=== PATIENT | female | born 1955 | race Caucasian/White ===

== ENCOUNTER → 2016-08-14 | Outpatient (CLI) | payer BC ==
--- NOTE | 2016-08-14 13:24 | REPMRS ---
Patient History The patient states she had a clinical breast exam in 08/2016. Patient is postmenopausal, has history of cancer in the right breast at age 58, and has history of high-risk lesion on a previous biopsy at age 58. Family history of prostate cancer in father at age 50 or over, ovarian cancer in mother at age 50 or over, breast cancer in mother at age 50, and breast cancer in maternal aunt. Malignant radio exam breast specimen of the right breast, October 05, 2014. Malignant localization of breast nodule of the right breast, October 05, 2014. High risk stereotatic loc for ea lesion of the right breast, September 11, 2014. Taking tamoxifen for 1 year 9 months beginning at age 58. Digital Woman Screen Mammo: August 14, 2016 - Exam #: [id number] Bilateral CC and MLO view(s) were taken. Technologist: Mirian Olivas Technologist Prior study comparison: August 12, 2015, bilateral digital mammo screening bilat, performed at [facility]. March 31, 2015, right breast digital mammo diagnostic unilateral, performed at [facility]. FINDINGS: There are scattered fibroglandular densities. There has been no change in the appearance of the mammogram from the prior studies. There is a mild amount of residual fibroglandular tissue which is fairly symmetric. There is no interval development of dominant mass, architectural distortion, or clustered microcalcification suggestive of malignancy. ASSESSMENT: BI-RADS/ACR category 1 mammogram. Negative. Recommendation Routine screening mammogram in 1 year (for women over age 40). This mammogram was interpreted with the aid of an FDA-approved computer-aided dectection system. Electronically Signed By: Ishmael Carty MD 08/14/16 [id number]
== END ==
LOC: M WHC 10:38
PROVIDERS: ATTEND Internal Medicine Medical Oncology
DX: Z12.31 Encounter for screening mammogram for malignant neoplasm of breast (principal); Z85.3 Personal history of malignant neoplasm of breast; Z78.0 Asymptomatic menopausal state

== ENCOUNTER → 2017-09-25 | Outpatient (CLI) | payer BC | LOC: M WHC 08:41 | DX: Z12.31 Encounter for screening mammogram for malignant neoplasm of breast (principal) | CPT/HCPCS: 77067 ==

== ENCOUNTER → 2017-09-25 | Outpatient (REF) | payer BC ==
[2017-09-28 14:57] LABS: HPV HYBRID CAPTURE II Negative (Negative)
== END ==
LOC: M SFHCWAGY 08:49
DX: Z12.4 Encounter for screening for malignant neoplasm of cervix (principal); R87.610 Atypical squamous cells of undetermined significance on cytologic smear of cervix (ASC-US)
CPT/HCPCS: G0123

== ENCOUNTER → 2018-09-26 | Outpatient (CLI) | payer BC ==
[~2018-09-26] MED LIST: CALC1TAB26 PO; D32000CA PO; ESCI20TA PO; LORA-243 PO; LOSA25TA14 PO; LOSA50TA88 PO; MULTCAP PO; SIMV80TA13 PO; TAMO20TA8 PO; ZOCO80TA PO
--- NOTE | 2018-09-26 12:06 | REPMRS ---
Patient History The patient states she had a clinical breast exam in 09/2018. 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 Family history of ovarian cancer at age 50 or over and breast cancer at age 50 in mother, breast cancer in maternal aunt, prostate cancer at age 50 or over in father, breast cancer in sister. Malignant radio exam breast specimen of the right breast, October 05, 2014. Malignant localization of breast nodule of the right breast, October 05, 2014. High risk stereotatic loc for ea lesion of the right breast, September 11, 2014. Took tamoxifen for 3 years 6 months beginning at age 58. Digital Woman Screen Mammo: September 26, 2018 - Exam #: [id number] Bilateral CC and MLO view(s) were taken. Technologist: Emily Burch, Technologist Prior study comparison: September 25, 2017, bilateral digital woman screen mammo performed at [facility]. August 14, 2016, digital woman screen mammo performed at [facility]. August 12, 2015, bilateral digital mammo screening bilat, performed at [facility]. FINDINGS: There are scattered fibroglandular densities. There has been no change in the appearance of the mammogram from the prior studies. There is a mild amount of scattered fibroglandular density which is fairly symmetric. There is no interval development of dominant mass, architectural distortion, or grouped microcalcification suggestive of malignancy. 3-D tomosynthesis shows no additional findings. Assessment: BI-RADS/ACR category 1 mammogram. Negative Mammogram. Recommendation Routine screening mammogram of both breasts in 1 year (for women over age 40). This mammogram was interpreted with the aid of an FDA-approved computer-aided dectection system. Electronically Signed By: Sami Corona MD 09/26/18 [id number]
== END ==
LOC: M WHC 09:05
PROVIDERS: ATTEND Nurse Practitioner Family
DX: Z12.31 Encounter for screening mammogram for malignant neoplasm of breast (principal); Z78.0 Asymptomatic menopausal state; Z85.3 Personal history of malignant neoplasm of breast; Z80.3 Family history of malignant neoplasm of breast; Z80.41 Family history of malignant neoplasm of ovary

== ENCOUNTER → 2018-09-26 | Outpatient (REF) | payer BC | LOC: M SFHCWAGY 10:22 | PROVIDERS: ATTEND Nurse Practitioner Family | DX: Z12.4 Encounter for screening for malignant neoplasm of cervix (principal) ==

== ENCOUNTER → 2019-09-29 | Outpatient (CLI) | payer OTHER ==
[~2019-09-29] MED LIST changes: +CIPR-249 PO; +IPRA0.00 NEB; +PANT40TA29 PO; +TOBR1NEB INH; +TREL1AER PO
--- NOTE | 2019-09-29 17:44 | REPMRS ---
Patient History The patient states she had a clinical breast exam in September 2019.Family history of ovarian cancer at age 50 or over and breast cancer at age 50 in mother, breast cancer in maternal aunt, prostate cancer at age 50 or over in father, breast cancer in sister. Malignant radio exam breast specimen of the right breast, October 05, 2014. Malignant localization of breast nodule of the right breast, October 05, 2014. High risk stereotatic loc for ea lesion of the right breast, September 11, 2014. Took tamoxifen for 3 years 6 months beginning at age 58. Digital Woman Screen Mammo: September 29, 2019 - Exam #: [id number] Bilateral CC and MLO view(s) were taken. Technologist: Leigh Velasco, Technologist Prior study comparison: September 26, 2018, bilateral digital woman screen mammo performed at [facility]. September 25, 2017, bilateral digital woman screen mammo performed at [facility]. August 14, 2016, digital woman screen mammo performed at [facility]. FINDINGS: There are scattered fibroglandular densities. The Volpara volumetric breast density category is:B. There has been no change in the appearance of the mammogram from the prior studies. There is a mild amount of scattered fibroglandular density which is fairly symmetric. There is no interval development of dominant mass, architectural distortion, or grouped microcalcification suggestive of malignancy. 3-D tomosynthesis shows no additional findings. Assessment: BI-RADS/ACR category 1 mammogram. Negative Mammogram. Recommendation Routine screening mammogram of both breasts in 1 year (for women over age 40).. This mammogram was interpreted with the aid of an FDA-approved computer-aided dectection system. Electronically Signed By: Sami Corona MD 09/29/19 [id number]
== END ==
LOC: M WHC 08:44
PROVIDERS: ATTEND Nurse Practitioner Family
DX: Z12.31 Encounter for screening mammogram for malignant neoplasm of breast (principal)

== ENCOUNTER → 2020-02-09 | Outpatient (REF) | payer OTHER | LOC: M LAB REF 16:56 | PROVIDERS: ATTEND Internal Medicine Pulmonary Disease | DX: J47.9 Bronchiectasis, uncomplicated (principal) ==

== ENCOUNTER → 2021-12-08 | Outpatient (CLI) | payer MEDICARE, OTHER, SELFPAY ==
[~2021-12-08] MED LIST changes: -ESCI20TA PO; +ESCI20TA16 PO; +LOSA25TA13 PO; -LOSA25TA14 PO; +LOSA50TA28 PO; -LOSA50TA88 PO
== END ==
LOC: M WHC 10:23
PROVIDERS: ATTEND Nurse Practitioner Family
DX: Z12.31 Encounter for screening mammogram for malignant neoplasm of breast (principal)

== ENCOUNTER → 2021-12-08 | Outpatient (REF) | payer MEDICARE | LOC: M PLALAB 13:14 | PROVIDERS: ATTEND Nurse Practitioner Family | DX: Z12.4 Encounter for screening for malignant neoplasm of cervix (principal) | CPT/HCPCS: 87624; G0123 ==

== ENCOUNTER 2022-09-11 07:08 | Day surgery (SDC) | payer MEDICARE ==
[~2022-09-11] VITALS: Ht 152.4 cm; Wt 94.3 kg
[~2022-09-11 07:08] MED LIST changes: +BSS IRRIG/VANCO(10MG)/TOBRA(5MG)/EPINEPH(1:1000-0.5CC)500ML BAG-ORONLY IR ONE; +CYCLOPENTOLATE 1% OPHTH SOLN 2ML BTL OD SCH; +D200CAP PO; +GLIP5TAB8 PO; +LEXA1TAB2 PO; +LIDOCAINE 3.5 % 1ML OPHTH TOPICAL GEL OU ONE; +METF500T13 PO; +OFLOXACIN 0.3 % (OCUFLOX) OPTH SOL 5ML OD ONE; +PHENYLEPHRINE 10% OPHTH SOL 5ML OD PRN; +PHENYLEPHRINE 2.5% OPHTH SOL 2ML OD SCH; +SIMV-254 PO; +TROPICAMIDE 1% OPHTH SOLN 15ML OD SCH; +VITMTA PO
[2022-09-11] MEDS ORDERED: LIDOCAINE 1% SDV 5ML VIAL As Ordered ONE (07:09)
[2022-09-11] MEDS ORDERED: CEFUROXIME 1MG/0.1ML INTRACAMERAL INJ As Ordered ONE (07:09)
[2022-09-11] MEDS ORDERED: fentaNYL 100 MCG/2 ML INJECTION As Ordered ONE (07:49)
[2022-09-11] MEDS ORDERED: MIDAZOLAM INJ 2MG/2ML VIAL As Ordered ONE (07:49)
[2022-09-11 08:30] VITALS: BP 138/65; TEMP 96.9; O2SAT 95
== END 2022-09-11 12:45 | disposition home or self-care (01) ==
LOC: M SDC 07:08
PROVIDERS: ATTEND Ophthalmology
DX: H25.11 Age-related nuclear cataract, right eye (principal); E78.5 Hyperlipidemia, unspecified; E11.9 Type 2 diabetes mellitus without complications; K21.9 Gastro-esophageal reflux disease without esophagitis; M19.90 Unspecified osteoarthritis, unspecified site; F41.9 Anxiety disorder, unspecified; G47.30 Sleep apnea, unspecified; R32 Unspecified urinary incontinence; Z79.899 Other long term (current) drug therapy
CPT/HCPCS: 66984; 92015; J0697; J2250; J3010; V2788

== ENCOUNTER 2022-09-18 06:57 | Day surgery (SDC) | payer MEDICARE ==
[~2022-09-18] VITALS: Ht 152.4 cm; Wt 94.7 kg
[~2022-09-18 06:57] MED LIST changes: -CYCLOPENTOLATE 1% OPHTH SOLN 2ML BTL OD SCH; +CYCLOPENTOLATE 1% OPHTH SOLN 2ML BTL OS SCH; -OFLOXACIN 0.3 % (OCUFLOX) OPTH SOL 5ML OD ONE; +OFLOXACIN 0.3 % (OCUFLOX) OPTH SOL 5ML OS ONE; -PHENYLEPHRINE 10% OPHTH SOL 5ML OD PRN; +PHENYLEPHRINE 10% OPHTH SOL 5ML OS PRN; -PHENYLEPHRINE 2.5% OPHTH SOL 2ML OD SCH; +PHENYLEPHRINE 2.5% OPHTH SOL 2ML OS SCH; -TROPICAMIDE 1% OPHTH SOLN 15ML OD SCH; +TROPICAMIDE 1% OPHTH SOLN 15ML OS SCH
[2022-09-18] MEDS ORDERED: fentaNYL 100 MCG/2 ML INJECTION As Ordered ONE (06:58)
[2022-09-18] MEDS ORDERED: MIDAZOLAM INJ 2MG/2ML VIAL As Ordered ONE (06:58)
[2022-09-18] MEDS ORDERED: LIDOCAINE 1% SDV 5ML VIAL As Ordered ONE (07:30)
[2022-09-18] MEDS ORDERED: CEFUROXIME 1MG/0.1ML INTRACAMERAL INJ As Ordered ONE (07:30)
[2022-09-18] MEDS ORDERED: DUOVISC (0.50ML VISCOAT/0.85ML PROVISC) OPHTH KIT As Ordered ONE (07:30)
[2022-09-18] MEDS ORDERED: INSULIN LISPRO (NovoLOG) PER UNIT SC PRN ×2 (08:05)
[2022-09-18 09:47] VITALS: BP 169/80; TEMP 98.8; O2SAT 96
== END 2022-09-18 09:55 | disposition home or self-care (01) ==
LOC: M SDC 06:57
PROVIDERS: ATTEND Ophthalmology
DX: H25.12 Age-related nuclear cataract, left eye (principal); E11.9 Type 2 diabetes mellitus without complications; G47.30 Sleep apnea, unspecified; Z79.899 Other long term (current) drug therapy
CPT/HCPCS: 66984; 92015; J0697; J1815; J2250; J3010; V2788

== ENCOUNTER → 2023-05-11 | Outpatient (CLI) | payer MEDICARE ==
[~2023-05-11] MED LIST changes: -BSS IRRIG/VANCO(10MG)/TOBRA(5MG)/EPINEPH(1:1000-0.5CC)500ML BAG-ORONLY IR ONE; -CYCLOPENTOLATE 1% OPHTH SOLN 2ML BTL OS SCH; +GLIP5TAB17 PO; -GLIP5TAB8 PO; -LIDOCAINE 3.5 % 1ML OPHTH TOPICAL GEL OU ONE; -OFLOXACIN 0.3 % (OCUFLOX) OPTH SOL 5ML OS ONE; -PHENYLEPHRINE 10% OPHTH SOL 5ML OS PRN; -PHENYLEPHRINE 2.5% OPHTH SOL 2ML OS SCH; -TROPICAMIDE 1% OPHTH SOLN 15ML OS SCH
== END ==
LOC: M WHC 10:30
PROVIDERS: ATTEND Nurse Practitioner Family
DX: Z12.31 Encounter for screening mammogram for malignant neoplasm of breast (principal); R92.1 Mammographic calcification found on diagnostic imaging of breast